=== PATIENT | male | born 1955 | race Caucasian/White ===

== ENCOUNTER 2021-01-16 05:40 | Day surgery (SDC) | payer OTHER ==
[2021-01-15 10:31] VITALS: BMI 27.3
[2021-01-16 11:19] VITALS: TEMP 97.3
[2021-01-16 12:48] VITALS: BP 115/58; PULSE 52
== END 2021-01-16 12:40 | disposition home or self-care (01) ==
LOC: JASU-ENDO 05:40
PROVIDERS: ATTEND Internal Medicine Gastroenterology
PROC: 0DJD8ZZ Inspection of Lower Intestinal Tract, Via Natural or Artificial Opening Endoscopic (ICD-10-PCS; principal; 2021-01-16 10:51)
DX: Z12.11 Encounter for screening for malignant neoplasm of colon (principal); K57.30 Diverticulosis of large intestine without perforation or abscess without bleeding; K64.8 Other hemorrhoids; Z80.0 Family history of malignant neoplasm of digestive organs